=== PATIENT | female | born 1945 | race Caucasian/White ===

== ENCOUNTER 2020-02-12 08:16 | Outpatient (CLI) | payer OTHER ==
[~2020-02-12 08:16] MED LIST: NO TOMA MED.
== END 2020-02-12 08:20 | disposition home or self-care (01) ==
LOC: NUCLEAR 08:16
PROVIDERS: ATTEND Internal Medicine Cardiovascular Disease
DX: I82.493 Acute embolism and thrombosis of other specified deep vein of lower extremity, bilateral (principal)

== ENCOUNTER 2020-07-24 06:29 | Day surgery (SDC) | payer OTHER ==
[~2020-07-24 06:29] MED LIST changes: +LOSARTAN-HCTZ1 EAC2 PO; +SYNTHROID150 MCG PO
== END 2020-07-24 15:00 | disposition home or self-care (01) ==
LOC: CIR.AMB 06:29
PROVIDERS: ATTEND Orthopaedic Surgery
DX: M75.122 Complete rotator cuff tear or rupture of left shoulder, not specified as traumatic (principal); M19.012 Primary osteoarthritis, left shoulder; M75.22 Bicipital tendinitis, left shoulder; Z20.828 Contact with and (suspected) exposure to other viral communicable diseases

== ENCOUNTER 2021-10-18 10:17 | Outpatient (CLI) | payer OTHER | END 2021-10-18 10:22 | disposition home or self-care (01) | LOC: RX STUDY 10:17 | PROVIDERS: ATTEND Internal Medicine Gastroenterology | DX: R13.0 Aphagia (principal) ==

== ENCOUNTER 2023-11-13 13:03 | Outpatient (CLI) | payer OTHER | END 2023-11-13 13:39 | disposition home or self-care (01) | LOC: TOM 13:03 | PROVIDERS: ATTEND Orthopaedic Surgery | DX: E11.65 Type 2 diabetes mellitus with hyperglycemia (principal); I10 Essential (primary) hypertension; M25.511 Pain in right shoulder; M75.21 Bicipital tendinitis, right shoulder; M75.111 Incomplete rotator cuff tear or rupture of right shoulder, not specified as traumatic ==

== ENCOUNTER 2025-04-25 07:51 | Outpatient (CLI) | payer OTHER | END 2025-04-25 07:52 | disposition home or self-care (01) | LOC: NUCLEAR 07:51 | PROVIDERS: ATTEND Internal Medicine Cardiovascular Disease | DX: I20.1 Angina pectoris with documented spasm (principal) | CPT/HCPCS: 78452; 93017; A9500; J0153 ==